=== PATIENT | female | born 1945 | race Caucasian/White ===

== ENCOUNTER 2017-08-08 13:43 | Emergency (ER) | payer OTHER ==
[2017-08-08] MEDS ORDERED: ACETAMINOPHEN-CODEINE 300/30MG TAB ONE (14:14)
[2017-08-08] MEDS ORDERED: TETANUS/DIPHTHERIA TOXOID [ADULT] 0.5 ML VIAL IM ONE (14:15)
== END 2017-08-08 16:44 | disposition home or self-care (01) ==
LOC: EDH 13:43
DX: S43.491A Other sprain of right shoulder joint, initial encounter (principal); S63.8X2A Sprain of other part of left wrist and hand, initial encounter; S29.011A Strain of muscle and tendon of front wall of thorax, initial encounter; E78.5 Hyperlipidemia, unspecified; Z98.890 Other specified postprocedural states; Z87.891 Personal history of nicotine dependence; W18.39XA Other fall on same level, initial encounter; Y93.01 Activity, walking, marching and hiking; Y92.89 Other specified places as the place of occurrence of the external cause; Y99.8 Other external cause status
CPT/HCPCS: 71101; 73030; 73130; 90471; 90714